=== PATIENT | male | born 1940 | race Caucasian/White ===

== ENCOUNTER 2017-05-29 13:45 | Observation (INO) | payer BC, OTHER ==
[2017-05-29 14:14] VITALS: BMI 25.0
--- NOTE | 2017-05-29 14:36 | PDOC ---
History of Present Illness - General History Source: Patient Exam Limitations: No Limitations - History of Present Illness Initial Comments: 05/29/17 15:06 The patient is a 76 year old male, with significant PMH of NE(20 years ago),HTN who presents to the emergency department with head injury s/p fall secondary to loss of consciousness 2 days ago. The patient states that he remembers having his brother pick him up from the floor in his bathroom . He also states that he was unsure if he hit his head when he fell . The patient does not have recollection of event leading up to fall. He reports that this has never happened before. The patient denies any weakness, vomiting or altermentation after fall. He states that he recently changed the time at which he takes his medication, metoprolol, to when he is going to bed. 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 Patient states that he takes aspirin 2x daily. The patient denies chest pain, shortness of breath, headache, blurred vision and dizziness. Denies fever, chills, nausea, vomit, diarrhea and constipation. Denies dysuria, frequency, urgency and hematuria. Denies neck or back pain. Denies numbness, weakness or tingling. Denies any bowel or bladder incontinence. Allergies: NKA Medications: Atorvastatin, Metoprolol, Ramipril, Valacyclovir Past surgical history: None reported Social history: Patient is employed (social work supervisor). Cardiology: Hollis Beatty <Kong Willingham - Last Filed: 05/29/17 16:10> - History of Present Illness Initial Comments: 05/29/17 16:25 Physical exam: Alert and oriented well-developed well-nourished no acute distress cheerful and cooperative Asymptomatic at present Afebrile, vital signs normal There is a healing abrasion of the right side of the forehead. There is no swelling, hematoma, depression, or purulence/drainage suggestive of infection. There is minimal tenderness. There are ecchymoses developing in the soft tissues of the lower eyelids and cheeks. No associated pain or tenderness PERRLA 4 mm, fundi benign with sharp disc margins and good central venous pulsations. ENT clear Neck without tenderness or deformity, full range of motion without pain Chest clear, full breath sounds bilaterally, no wheezes rales or rhonchi. No chest wall or rib cage tenderness or deformity CV S1 and S2 distant without murmur rub or gallop pulses full and symmetric no JVD or edema no bruits 60 and regular Abdomen soft nontender without mass or organomegaly. No CVAT Spine and pelvis without tenderness or deformity Neurological C2 to 12 intact. Strength full and symmetric. No focal sensory or motor deficits. DTRs 2+ symmetric. Babinski's down. Gait stable and unimpaired Extremities no CCE Skin clear, no rash, adequate turgor and wet mucous membranes Impression: 4 days post syncopal episode in the bathroom, asymptomatic except for abrasion of the forehead and ecchymoses below the eyes, which probably do not signify a serious illness. He has been going about his normal work since the injury. There is a history of NE but no significant cardiac symptoms since the event 40 years ago. Unlikely but possibly an acute cardiac event Plan: EKG and enzymes, head CT, routine bloods, observation and further treatment depending on results. <Luis Sullivan - Last Filed: 05/29/17 18:07> - General Chief Complaint: Injury Stated Complaint: FAINTED ON SUNDAY,HIT FORHEAD Time Seen by Provider: 05/29/17 14:06 Past History <Kong Willingham - Last Filed: 05/29/17 16:10> - Past Medical History COPD: No HTN: Yes Hypercholesterolemia: Yes - Surgical History Cardiac Surgery: Yes (ANGIOPLASTY) - Suicide/Smoking/Psychosocial Hx Smoking History: Never smoked Information on smoking cessation initiated: No Hx Alcohol Use: No Drug/Substance Use Hx: No Substance Use Type: None <Luis Sullivan - Last Filed: 05/29/17 18:07> - Past Medical History Allergies/Adverse Reactions: Allergies Allergy/AdvReac Type Severity Reaction Status Date / Time No Known Allergies Allergy Verified 05/29/17 13:55 Home Medications: Ambulatory Orders Amlodipine Besylate 5 mg PO DAILY 05/29/17 Aspirin 81 mg PO DAILY 05/29/17 Atorvastatin Ca [Lipitor] 10 mg PO HS 05/29/17 Metoprolol Succinate [Toprol Xl] 50 mg PO DAILY 05/29/17 Ramipril [Altace] 10 mg PO DAILY 05/29/17 Valacyclovir HCl [Valtrex] 500 mg PO DAILY 05/29/17 Review of Systems - Review of Systems Able to Perform ROS?: Yes Comments:: 05/29/17 15:07 CONSTITUTIONAL: Absent: fever, chills, diaphoresis, generalized weakness, malaise, loss of appetite HEENT: Absent: rhinorrhea, nasal congestion, throat pain, throat swelling, difficulty swallowing, mouth swelling, ear pain, eye pain, visual Changes CARDIOVASCULAR: Absent: chest pain, syncope, palpitations, irregular heart rate, lightheadedness , peripheral edema RESPIRATORY: Absent: cough, shortness of breath, dyspnea with exertion, orthopnea, wheezing, stridor, hemoptysis GASTROINTESTINAL: Absent: abdominal pain, abdominal distension, nausea, vomiting, diarrhea, constipation, melena, hematochezia GENITOURINARY: Absent: dysuria, frequency, urgency, hesitancy, hematuria, flank pain, genital pain MUSCULOSKELETAL: Absent: myalgia, arthralgia, joint swelling SKIN: Absent: rash, itching, pallor HEMATOLOGIC/IMMUNOLOGIC: Absent: easy bleeding, easy bruising, lymphadenopathy, frequent infections ENDOCRINE: Absent: unexplained weight gain, unexplained weight loss, heat intolerance, cold intolerance NEUROLOGIC: Present: (+) LOC Absent: headache, focal weakness or paresthesias, dizziness, unsteady gait, seizure, mental status changes, bladder or bowel incontinence PSYCHIATRIC: Absent: anxiety, depression, suicidal or homicidal ideation, hallucinations. <Kong Willingham - Last Filed: 05/29/17 16:10> *Physical Exam - Vital Signs Last Vital Signs Temp Pulse Resp BP Pulse Ox 98.5 F 59 L 16 154/70 98 05/29/17 13:47 05/29/17 13:47 05/29/17 13:47 05/29/17 13:47 05/29/17 13:47 <Kong Willingham - Last Filed: 05/29/17 16:10> - Vital Signs Last Vital Signs Temp Pulse Resp BP Pulse Ox 98.5 F 59 L 16 154/70 98 05/29/17 13:47 05/29/17 13:47 05/29/17 13:47 05/29/17 13:47 05/29/17 13:47 <Luis Sullivan - Last Filed: 05/29/17 18:07> ED Treatment Course - LABORATORY CBC & Chemistry Diagram: 05/29/17 14:59 05/29/17 14:37 - RADIOLOGY Radiograph Interpretation: 05/29/17 15:35 EXAM#: TYPE/EXAM: RESULT: [id number] CT/HEAD CT WITHOUT CONTRAST Status post head injury CT scan of the brain without intravenous contrast. There is dqzw-nq-pubyvenk volume loss and ventricular dilatation. 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 No mass lesion or intracranial hemorrhage are identified. There is no shift of the midline structures Visualized paranasal sinuses and mastoid air cells are well-aerated. The calvarium is intact. Calcification of the cavernous carotid arteries are present. IMPRESSION: Gbdd-za-hcisvsjw volume loss and ventricular dilatation. 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 Correlate clinically to determine further evaluation and follow-up. Reported By: Brandt De Leon MD <Kong Willingham - Last Filed: 05/29/17 16:10> - LABORATORY CBC & Chemistry Diagram: 05/29/17 14:59 05/29/17 14:37 <Luis Sullivan - Last Filed: 05/29/17 18:07> Medical Decision Making - Medical Decision Making 05/29/17 16:[address] Sampson (Cardiology). Case discussed with covering physician Dr. Bishop at 4:06pm <Kong Willingham - Last Filed: 05/29/17 16:10> - Medical Decision Making 05/29/17 15:02 EKG: Sinus bradycardia 56/m, mild, probably the result of beta baljit therapy. Q waves in V1 through V4, probably changes from old NE. No ST-T wave changes suggestive of acute ischemia. 05/29/17 16:20 Troponin is elevated at 0.18. CPK is normal. Attempt was made to contact the patient's stunner animal, Dr. Sampson. He is away. Spoke with Dr. Bishop, his partner. Recommended admission for serial EKGs and enzymes, but there group no longer covers Sullivan. He recommended we contact Dr. Wang's group, with whom he has an agreement to cover his patients Dr. Wang was contacted by phone. The case was discussed. He will consult. He agrees with admission and observation. No specific therapy at present. To repeat serial EKGs and enzymes to make sure cardiac status is stable. Patient is already on aspirin, of which he took his morning dose, along with all his other usual medications except metoprolol. We'll administer metoprolol now. Clinically and hemodynamically stable, no cardiac symptoms including chest pain , shortness of breath, dizziness. 05/29/17 18:06 Patient remains clinically stable. Hemodynamically stable. No symptoms. For repeat EKG and enzymes, monitoring, and observation. <Luis Sullivan - Last Filed: 05/29/17 18:07> *DC/Admit/Observation/Transfer - Attestations Scribe Attestion: 05/29/17 15:08 Documentation prepared by Kong Willingham, acting as biomedical equipment tech for Luis Valero MD <Kong Willingham - Last Filed: 05/29/17 16:10> - Discharge Dispostion Admit: Yes <Luis Sullivan - Last Filed: 05/29/17 18:07> Diagnosis at time of Disposition: Syncope Qualifiers: Syncope type: unspecified Qualified Code(s): R55 - Syncope and collapse
[2017-05-29 15:11] LABS: BASO % 0.7 % (0-2.0); EOS % 2.1 % (0-4.5); HEMATOCRIT 41.5 % (35.4-49); HEMOGLOBIN 14.2 GM/dl (11.7-16.9); MCHC 34.3 g/dl (32.0-35.9); MEAN CELL VOLUME 96.1 fl (80-96); MEAN PLT VOLUME 7.9 fl (7.5-11.1); MONO % 14.6 % (3.8-10.2); NEUT % 65.6 % (42.8-82.8); PLATELET COUNT 156 K/MM3 (134-434); RBC 4.31 M/mm3 (4.00-5.60); RDW 12.7 % (11.9-15.9); WHITE BLOOD COUNT 4.9 K/mm3 (4.0-10.8)
[2017-05-29 15:31] LABS: ALBUMIN 4.1 g/dl (3.5-5.0); ALK PHOS 65 U/L (32-92); ANION GAP 6 (8-16); BILIRUBIN,TOTAL 0.8 mg/dl (0.2-1.0); BLOOD UREA NITROGEN 20 mg/dl (7-18); CALCIUM 8.9 mg/dl (8.4-10.2); CHLORIDE 103 mmol/L (98-107); CO2 23 mmol/L (22-28); GLUCOSE,RANDOM 117 mg/dl (74-106); POTASSIUM 3.9 mmol/L (3.5-5.1); SGOT/AST 23 U/L (10-42); SGPT/ALT 24 U/L (10-40); SODIUM 132 mmol/L (136-145)
[2017-05-29] MEDS ORDERED: HEPARIN NA (PORCINE) 5,000 UNITS/ML 1ML VIAL ONE (18:46)
[2017-05-29] MEDS: HEPARIN NA (PORCINE) 5,000 UNITS/ML 1ML VIAL SQ SCH ×2 (19:03→19:15)
--- NOTE | 2017-05-29 19:23 | HP ---
CHIEF COMPLAINT: Syncope, s/p Fall PCP: Cardiology: Dr. Sampson HISTORY OF PRESENT ILLNESS: This is a 76 y/o man PMHx of [place], HTN, HLD. Who presents to the ED with a syncopal episode, s/p fall x 2 days. Patient reports while ambulating to the bathroom, he felt dizzy and passed out hitting his forehead on the bathroom sink. Patient reports having no concussive like symptoms since the event. Patent reports being on metoprolol for 30 yrs and never having any symptoms. Patient denies fever, chills, cough, DUKES, dizziness, visual disturbances. SOB, CP , palpitation, AP. N/V/D, constipation, dysuria. He reports last echo 6-8 months ago, last stress test last year. ER course was notable for: (1) Head CT- mild to moderate volume loss and ventricular dilatation. 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 (2) Trop- 0.18 (3) Carotid Doppler:No evidence of hemodynamically significant stenosis in the common carotid arteries or visualized cervical carotid arteries Recent Travel: Yes, via [employer]. [place] PAST MEDICAL HISTORY: see HPI PAST SURGICAL HISTORY: Social History: Smoking: Never Alcohol: None Drugs: None Family History: Allergies No Known Allergies Allergy (Verified 05/29/17 13:55) HOME MEDICATIONS: Home Medications Medication Instructions Recorded Amlodipine Besylate 5 mg PO DAILY 05/29/17 Aspirin 81 mg PO DAILY 05/29/17 Atorvastatin Ca [Lipitor] 10 mg PO HS 05/29/17 Metoprolol Succinate [Toprol Xl] 50 mg PO DAILY 05/29/17 Ramipril [Altace] 10 mg PO DAILY 05/29/17 Valacyclovir HCl [Valtrex] 500 mg PO DAILY 05/29/17 REVIEW OF SYSTEMS CONSTITUTIONAL: Absent: fever, chills, diaphoresis, generalized weakness, malaise, loss of appetite, weight change HEENT: Absent: rhinorrhea, nasal congestion, throat pain, throat swelling, difficulty swallowing, mouth swelling, ear pain, eye pain, visual changes CARDIOVASCULAR: syncope, lightheadedness Absent: chest pain, palpitations, irregular heart rate, peripheral edema RESPIRATORY: Absent: cough, shortness of breath, dyspnea with exertion, orthopnea, wheezing, stridor, hemoptysis GASTROINTESTINAL: Absent: abdominal pain, abdominal distension, nausea, vomiting, diarrhea, constipation, melena, hematochezia GENITOURINARY: Absent: dysuria, frequency, urgency, hesitancy, hematuria, flank pain, genital pain MUSCULOSKELETAL: Absent: myalgia, arthralgia, joint swelling, back pain, neck pain SKIN: Absent: rash, itching, pallor HEMATOLOGIC/IMMUNOLOGIC: Absent: easy bleeding, easy bruising, lymphadenopathy, frequent infections ENDOCRINE: Absent: unexplained weight gain, unexplained weight loss, heat intolerance, cold intolerance NEUROLOGIC: dizziness Absent: headache, focal weakness or paresthesias, unsteady gait, seizure, mental status changes, bladder or bowel incontinence PSYCHIATRIC: Absent: anxiety, depression, suicidal or homicidal ideation, hallucinations. PHYSICAL EXAMINATION Vital Signs - 24 hr 05/29/17 05/29/17 05/29/17 13:47 16:35 17:39 Temperature 98.5 F Pulse Rate 59 L Pulse Rate [ 66 66 Apical] Respiratory 16 21 20 Rate Blood Pressure 154/70 Blood Pressure 156/72 144/69 [Arm] O2 Sat by Pulse 98 100 99 Oximetry (%) GENERAL: Awake, alert, and fully oriented, in no acute distress. HEAD: Normal with eccyhmotic bruising and abrasions to R-temporal, bilateral orbits. EYES: Pupils equal, round and reactive to light, extraocular movements intact, sclera anicteric, conjunctiva clear. No lid lag. EARS, NOSE, THROAT: Ears normal, nares patent, oropharynx clear without exudates. Moist mucous membranes. NECK: Normal range of motion, supple without lymphadenopathy, JVD, or masses. LUNGS: Breath sounds equal, clear to auscultation bilaterally. No wheezes, and no crackles. No accessory muscle use. HEART: Regular rate and rhythm, normal S1 and S2 without murmur, rub or gallop. ABDOMEN: Soft, nontender, not distended, normoactive bowel sounds, no guarding, no rebound, no masses. No hepatomegaly or splenomegaly. MUSCULOSKELETAL: Normal range of motion at all joints. No bony deformities or tenderness. No CVA tenderness. UPPER EXTREMITIES: 2+ pulses, warm, well-perfused. No cyanosis. No clubbing. No peripheral edema. LOWER EXTREMITIES: 2+ pulses, warm, well-perfused. No calf tenderness. No peripheral edema. NEUROLOGICAL: Cranial nerves II-XII intact. Normal speech. Gait not observed. PSYCHIATRIC: Cooperative. Good eye contact. Appropriate mood and affect. SKIN: Scabbed eccyhmotic abrasion to R- temporal, Eccyhmotic bruising to bilateral orbits noted. Warm, dry, normal turgor, no rashes. normal capillary refill. Laboratory Results - last 24 hr 05/29/17 05/29/17 05/29/17 14:37 14:37 14:59 WBC 4.9 RBC 4.31 Hgb 14.2 Hct 41.5 MCV 96.1 H MCH 33.0 MCHC 34.3 RDW 12.7 Plt Count 156 MPV 7.9 Neutrophils % 65.6 Lymphocytes % 17.0 Monocytes % 14.6 H Eosinophils % 2.1 Basophils % 0.7 Sodium 132 L Potassium 3.9 Chloride 103 Carbon Dioxide 23 Anion Gap 6 L BUN 20 H Creatinine 1.0 Creat Clearance w eGFR > 60 Random Glucose 117 H Calcium 8.9 Total Bilirubin 0.8 AST 23 ALT 24 Alkaline Phosphatase 65 Creatine Kinase 95 Troponin I 0.18 H Total Protein 7.0 Albumin 4.1 Stool Occult Blood 05/29/17 05/29/17 05/29/17 18:32 18:32 18:32 WBC RBC Hgb Hct MCV MCH MCHC RDW Plt Count MPV Neutrophils % Lymphocytes % Monocytes % Eosinophils % Basophils % Sodium Potassium Chloride Carbon Dioxide Anion Gap BUN Creatinine Creat Clearance w eGFR Random Glucose Calcium Total Bilirubin AST ALT Alkaline Phosphatase Creatine Kinase 89 Troponin I < 0.03 D Total Protein Albumin Stool Occult Blood Negative RADIOLOGY Radiograph Interpretation: 05/29/17 15:35 EXAM#: TYPE/EXAM: RESULT: [id number] CT/HEAD CT WITHOUT CONTRAST Status post head injury CT scan of the brain without intravenous contrast. There is ckss-do-tfkdiivd volume loss and ventricular dilatation. 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 No mass lesion or intracranial hemorrhage are identified. There is no shift of the midline structures Visualized paranasal sinuses and mastoid air cells are well-aerated. The calvarium is intact. Calcification of the cavernous carotid arteries are present. IMPRESSION: Uncz-gb-lomhocbw volume loss and ventricular dilatation. 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 Correlate clinically to determine further evaluation and follow-up. Reported By: Brandt De Leon MD ASSESSMENT/PLAN: This is a 76 y/o man with a PMH of [place], HTN, HLD. Who presented to the ED with Syncope. Placed Tele Observation for Syncope Plan: 1. Syncope - Likely secondary to Medication vs Arrhythmia vs Malignancy - Continue cardiac monitoring - Serial Enzymes- #1 slightly elevated - Appreciate Cardiology consult - Carotid Doppler- moderate size shadowing calcified plaque, right common carotid bifurcation. No evidence of stenosis in the common carotid arteries or visualized cervical internal carotid arteries - Echo in am - Head CT- see above - Consider Neurology consult if condition worsens - Fall precautions - Repeat CBC, BMP in am 2. Hypertension - Stable - Monitor BP - Will hold BB 2/2 dizziness - Continue Valsartan, Ramipril 3. Hyperlipidemia - Continue Atorvastatin - Monitor LFTs 4. History of [place] - Continue Asa, hold BB 2/2 Syncope, defer to Cardiology 5. FEN - PO fluids as tolerated - Replete lytes prn - Low Na Diet 6. DVT ppx - OOB - SCDs Code Status: Full Code Dispo: Tele Observation Problem List - Problem (1) Syncope Code(s): R55 - SYNCOPE AND COLLAPSE Qualifiers: Syncope type: unspecified Qualified Code(s): R55 - Syncope and collapse (2) HTN (hypertension) Code(s): I10 - ESSENTIAL (PRIMARY) HYPERTENSION (3) HLD (hyperlipidemia) Code(s): E78.5 - HYPERLIPIDEMIA, UNSPECIFIED (4) DVT prophylaxis Code(s): DMO3000 - Visit type - Emergency Visit Emergency Visit: Yes ED Registration Date: 05/29/17 Care time: The patient presented to the Emergency Department on the above date and was hospitalized for further evaluation of their emergent condition. - New Patient This patient is new to me today: Yes Date on this admission: 05/29/17 - Critical Care Critical Care patient: No Hospitalist Screening - Colonoscopy Questionnaire Colonoscopy Questionnaire: Colonoscopy Questionnaire - Patient: 50 - 75 years old and never had a screening colonoscopy: No History of colon or rectal polyps, or CA: No History of IBD, Crohn's disease or UC: No History of abdominal radiation therapy as a child: No - Relative: 1 with colon or rectal CA, or polyps at age 60 or younger: No Colon or rectal CA diagnosed at age 45 or younger: No Multiple relatives with colon or rectal CA: No - Outcome: Screening Result: Negative Screen
[2017-05-30] MEDS ORDERED: ATORVASTATIN CA 10 MG TABLET (FP) PO ONE (01:40)
[2017-05-30] MEDS: HEPARIN NA (PORCINE) 5,000 UNITS/ML 1ML VIAL SQ SCH ×3 (06:29→21:15)
--- NOTE | 2017-05-30 07:41 | PN ---
Physical Exam: SUBJECTIVE: Patient seen and examined, reports feeling well, denies any chest pain or shortness of breath, patient reported dizziness that resolved after taking metoprolol. OBJECTIVE:This is a 76 y/o man PMHx of [place], HTN, HLD, patient was admitted from the emergency department to observation for syncopal episode. Vital Signs Period Temp Pulse Resp BP Sys/Lozada Pulse Ox Last 24 Hr 98.0 F-98.5 F 48-74 16-21 105-168/60-78 96-100 GENERAL: The patient is awake, alert, and fully oriented, in no acute distress. HEAD: Normal with no signs of trauma. EYES: PERRL, extraocular movements intact, sclera anicteric, conjunctiva clear. No ptosis. ENT: Ears normal, nares patent, oropharynx clear without exudates, moist mucous membranes. NECK: Trachea midline, full range of motion, supple. LUNGS: Breath sounds equal, clear to auscultation bilaterally, no wheezes, no crackles, no accessory muscle use. HEART: Regular rate and rhythm, S1, S2 without murmur, rub or gallop. ABDOMEN: Soft, nontender, nondistended, normoactive bowel sounds, no guarding, no rebound, no hepatosplenomegaly, no masses. EXTREMITIES: 2+ pulses, warm, well-perfused, no edema. NEUROLOGICAL: Cranial nerves II through XII grossly intact. Normal speech, gait not observed. PSYCH: Normal mood, normal affect. SKIN: Warm, dry, normal turgor, no rashes or lesions noted Laboratory Results - last 24 hr 05/29/17 05/29/17 05/29/17 14:37 14:37 14:59 WBC 4.9 RBC 4.31 Hgb 14.2 Hct 41.5 MCV 96.1 H MCH 33.0 MCHC 34.3 RDW 12.7 Plt Count 156 MPV 7.9 Neutrophils % 65.6 Lymphocytes % 17.0 Monocytes % 14.6 H Eosinophils % 2.1 Basophils % 0.7 Sodium 132 L Potassium 3.9 Chloride 103 Carbon Dioxide 23 Anion Gap 6 L BUN 20 H Creatinine 1.0 Creat Clearance w eGFR > 60 Random Glucose 117 H Calcium 8.9 Total Bilirubin 0.8 AST 23 ALT 24 Alkaline Phosphatase 65 Creatine Kinase 95 Troponin I 0.18 H Total Protein 7.0 Albumin 4.1 Stool Occult Blood 05/29/17 05/29/17 05/29/17 18:32 18:32 18:32 WBC RBC Hgb Hct MCV MCH MCHC RDW Plt Count MPV Neutrophils % Lymphocytes % Monocytes % Eosinophils % Basophils % Sodium Potassium Chloride Carbon Dioxide Anion Gap BUN Creatinine Creat Clearance w eGFR Random Glucose Calcium Total Bilirubin AST ALT Alkaline Phosphatase Creatine Kinase 89 Troponin I < 0.03 D Total Protein Albumin Stool Occult Blood Negative 05/29/17 05/30/17 20:50 02:29 WBC RBC Hgb Hct MCV MCH MCHC RDW Plt Count MPV Neutrophils % Lymphocytes % Monocytes % Eosinophils % Basophils % Sodium Potassium Chloride Carbon Dioxide Anion Gap BUN Creatinine Creat Clearance w eGFR Random Glucose Calcium Total Bilirubin AST ALT Alkaline Phosphatase Creatine Kinase Troponin I 0.00 0.03 Total Protein Albumin Stool Occult Blood Active Medications Generic Name Dose Route Start Last Admin Trade Name Freq PRN Reason Stop Dose Admin Aspirin 81 mg 05/30/17 10:00 Asa - PO DAILY MATT Heparin Sodium (Porcine) 5,000 unit 05/30/17 06:00 05/30/17 06:29 Heparin - SQ 5,000 unit TID MATT Administration imaging Carotid Doppler- moderate size shadowing calcified plaque, right common carotid bifurcation. 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 Syncope - likely secondary to metoprolol, patient reports similar symptoms after receiving toprol 50mg yesterday evening - remains bradycardic on telemetry, pt denies any dizziness - troponin x 3 wnl hypertension - b/p labile, hold altace and valsartan - orthostatic vital signs Hyperlipidemia - Continue Atorvastatin - Monitor LFTs CAD - continue asa, hold BB secondary to bradycardia 2 FEN - PO fluids as tolerated - Replete lytes prn - Low Na Diet 6. DVT ppx - OOB - SCDs Code Status: Full Code Dispo: Tele Observation Visit type - Emergency Visit Emergency Visit: Yes ED Registration Date: 05/29/17 Care time: The patient presented to the Emergency Department on the above date and was hospitalized for further evaluation of their emergent condition. - New Patient This patient is new to me today: Yes Date on this admission: 05/30/17 - Critical Care Critical Care patient: No - Discharge Referral Referred to [facility] Med [facility].C[facility] No
[2017-05-30 08:24] LABS: ALBUMIN 3.5 g/dl (3.5-5.0); ALK PHOS 56 U/L (32-92); ANION GAP 4 (8-16); BILIRUBIN,TOTAL 0.8 mg/dl (0.2-1.0); BLOOD UREA NITROGEN 24 mg/dl (7-18); CALCIUM 8.7 mg/dl (8.4-10.2); CHLORIDE 105 mmol/L (98-107); CO2 27 mmol/L (22-28); CREATININE 1.2 mg/dl (0.6-1.3); GLUCOSE,RANDOM 108 mg/dl (74-106); MAGNESIUM 2.1 mg/dL (1.8-2.4); PHOSPHOROUS 4.1 mg/dl (2.5-4.6); SGOT/AST 21 U/L (10-42); SGPT/ALT 20 U/L (10-40); SODIUM 136 mmol/L (136-145); TOT PROT 6.1 g/dl (6.4-8.3)
[2017-05-30 08:27] LABS: BASO % 0.5 % (0-2.0); EOS % 2.7 % (0-4.5); HEMATOCRIT 36.8 % (35.4-49); HEMOGLOBIN 12.9 GM/dl (11.7-16.9); LYMPH % 21.8 % (8-40); MCH 33.8 pg (25.7-33.7); MCHC 35.2 g/dl (32.0-35.9); MEAN CELL VOLUME 96.2 fl (80-96); MEAN PLT VOLUME 8.8 fl (7.5-11.1); MONO % 13.4 % (3.8-10.2); NEUT % 61.6 % (42.8-82.8); PLATELET COUNT 139 K/MM3 (134-434); RBC 3.83 M/mm3 (4.00-5.60); RDW 12.4 % (11.9-15.9); WHITE BLOOD COUNT 3.8 K/mm3 (4.0-10.8)
[2017-05-30] MEDS: ASPIRIN 81 MG CHEWABLE TABLETS PO SCH (09:55)
--- NOTE | 2017-05-30 12:45 | PN ---
Progress Note, Physician History of Present Illness: Dr. Sampson HISTORY OF PRESENT ILLNESS: This is a 76 y/o man PMHx of [place], HTN, HLD. Who presents to the ED with a syncopal episode, s/p fall x 2 days. Patient reports while ambulating to the bathroom, he felt dizzy and passed out hitting his forehead on the bathroom sink. Patient reports having no concussive like symptoms since the event. Patent reports being on metoprolol for 30 yrs and never having any symptoms. Patient denies fever, chills, cough, DUKES, dizziness, visual disturbances. SOB, CP , palpitation, AP. N/V/D, constipation, dysuria. He reports last echo 6-8 months ago, last stress test last year. ER course was notable for: (1) Head CT- mild to moderate volume loss and ventricular dilatation. 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 (2) Trop- 0.18 (3) Carotid Doppler:No evidence of hemodynamically significant stenosis in the common carotid arteries or visualized cervical carotid arteries Recent Travel: Yes, via [employer] PAST MEDICAL HISTORY: see HPI PAST SURGICAL HISTORY: Social History: Smoking: Never Alcohol: None Drugs: None Family History: Allergies No Known Allergies Allergy (Verified 05/29/17 13:55) - Current Medication List Current Medications: Active Medications Aspirin (Asa -) 81 mg PO DAILY [facility] Last Admin: 05/30/17 09:55 Dose: 81 mg Atorvastatin Calcium (Lipitor -) 10 mg PO HS [facility] Heparin Sodium (Porcine) (Heparin -) 5,000 unit SQ TID [facility] Last Admin: 05/30/17 06:29 Dose: 5,000 unit - Objective Vital Signs: Vital Signs Temperature 98.1 F 05/30/17 02:29 Pulse Rate 48 L 05/30/17 04:00 Respiratory Rate 20 05/30/17 04:00 Blood Pressure 105/60 05/30/17 02:29 O2 Sat by Pulse Oximetry (%) 97 05/30/17 00:38 Labs: CBC, BMP 05/30/17 07:30 05/30/17 07:30 Assessment/Plan 05/29/17 15:35 EXAM#: TYPE/EXAM: RESULT: [id number] CT/HEAD CT WITHOUT CONTRAST Status post head injury CT scan of the brain without intravenous contrast. There is cezp-jq-ufdapdyw volume loss and ventricular dilatation. 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 No mass lesion or intracranial hemorrhage are identified. There is no shift of the midline structures Visualized paranasal sinuses and mastoid air cells are well-aerated. The calvarium is intact. Calcification of the cavernous carotid arteries are present. IMPRESSION: Ppmy-fk-gouvkqic volume loss and ventricular dilatation. 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 Correlate clinically to determine further evaluation and follow-up. Reported By: Brandt De Leon MD ASSESSMENT/PLAN: This is a 76 y/o man with a PMH of [place], HTN, HLD. Who presented to the ED with Syncope. Placed Tele Observation for Syncope Plan: 1. Syncope - Likely secondary to Medication vs Arrhythmia vs Malignancy - Continue cardiac monitoring - Serial Enzymes- #1 slightly elevated - Appreciate Cardiology consult - Carotid Doppler- moderate size shadowing calcified plaque, right common carotid bifurcation. No evidence of stenosis in the common carotid arteries or visualized cervical internal carotid arteries - Echo in am - Head CT- see above - Consider Neurology consult if condition worsens - Fall precautions - Repeat CBC, BMP in am 2. Hypertension - Stable - Monitor BP - Will hold BB 2/2 dizziness - Continue Valsartan, Ramipril 3. Hyperlipidemia - Continue Atorvastatin - Monitor LFTs 4. History of [place] - Continue Asa, hold BB 2/2 Syncope, defer to Cardiology 5. FEN - PO fluids as tolerated - Replete lytes prn - Low Na Diet 6. DVT ppx - OOB - SCDs Code Status: Full Code Dispo: Tele Observation
--- NOTE | 2017-05-30 12:46 | CON.CARD ---
Consult Consult Specialty:: Cardiology Referred by:: Hospitalist Medicine Reason for Consultation:: Syncope - History of Present Illness Chief Complaint: Syncope History of Present Illness: Syncope, s/p Fall PCP: Rohini James MD Cardiology: Dr. Sampson This is a 76 y/o man PMHx of CAD s/p [place] s/p PCI LAD, RCA, HTN, HLD presented to the ED with a syncopal episode s/p mechanincal fall and closed head trauma 3 days prior. Patient reports while ambulating to the bathroom overnight, he felt dizzy, flushed and passed out hitting his forehead on the bathroom sink. Patient reports having no concussive like symptoms since the event. Patent reports being on metoprolol for 30 yrs and never having any symptoms. Patient DUKES , dizziness, visual disturbances, SOB, CP, palpitation, orthopnea, PND or LE edema. Overnight telemetry shows SB 30s with reproduction of prodromal symptoms. Recent Travel: Yes, via [place] [place] PAST MEDICAL HISTORY: see HPI PAST SURGICAL HISTORY: Social History: Smoking: Never Alcohol: None Drugs: None Family History: Allergies No Known Allergies Allergy (Verified 05/29/17 13:55) - History Source History Provided By: Patient Limitations to Obtaining History: No Limitations - Past Medical History Cardio/Vascular: Yes: CAD, HTN, Hyperlipdemia, [place] - Past Surgical History Past Surgical History: Yes: Stent - Alcohol/Substance Use Hx Alcohol Use: No - Smoking History Smoking history: Never smoked Have you smoked in the past 12 months: No Home Medications - Allergies Allergies/Adverse Reactions: Allergies Allergy/AdvReac Type Severity Reaction Status Date / Time No Known Allergies Allergy Verified 05/29/17 13:55 - Home Medications Home Medications: Ambulatory Orders Amlodipine Besylate 5 mg PO DAILY 05/29/17 Aspirin 81 mg PO DAILY 05/29/17 Atorvastatin Ca [Lipitor] 10 mg PO HS 05/29/17 Metoprolol Succinate [Toprol Xl] 50 mg PO DAILY 05/29/17 Ramipril [Altace] 10 mg PO DAILY 05/29/17 Valacyclovir HCl [Valtrex] 500 mg PO DAILY 05/29/17 Review of Systems - Review of Systems Neurological: reports: Dizziness, Syncope Vital Signs: Vital Signs Temperature 98.1 F 05/30/17 02:29 Pulse Rate 48 L 05/30/17 04:00 Respiratory Rate 20 05/30/17 04:00 Blood Pressure 105/60 05/30/17 02:29 O2 Sat by Pulse Oximetry (%) 97 05/30/17 00:38 Constitutional: Yes: No Distress, Calm, Thin Neck: Yes: Supple Respiratory: Yes: Regular, CTA Bilaterally Gastrointestinal: Yes: Normal Bowel Sounds, Soft Cardiovascular: Yes: Regular Rate and Rhythm, Other (No response with carotid sinus massage) JVD: No Carotid Bruit: No Heart Sounds: Yes: S1, S2 Edema: No - Other Data Labs, Other Data: CBC, BMP 05/30/17 07:30 05/30/17 07:30 Troponin, BNP 05/29/17 05/29/17 05/29/17 14:37 18:32 20:50 Troponin I 0.18 H < 0.03 D 0.00 05/30/17 02:29 Troponin I 0.03 Troponin, BNP 05/29/17 05/29/17 05/29/17 14:37 18:32 20:50 Troponin I 0.18 H < 0.03 D 0.00 05/30/17 02:29 Troponin I 0.03 SB @ 56 anteroseptal infarct similar to previous 08/21/16 Tele: SB 30s Ejection Fraction %: LVEF > or = 40 % Imaging - Results Cat Scan: Report Reviewed (05/29/17 15:35 EXAM#: TYPE/EXAM: RESULT: [id number] CT/HEAD CT WITHOUT CONTRAST Status post head injury CT scan of the brain without intravenous contrast. There is fxfo-mn-tpdablnn volume loss and ventricular dilatation. 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 No mass lesion or intracranial hemorrhage are identified. There is no shift of the midline structures Visualized paranasal sinuses and mastoid air cells are well- aerated. The calvarium is intact. Calcification of the cavernous carotid arteries are present. IMPRESSION: Aqqy-ux-ugxnozke volume loss and ventricular dilatation. 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 Correlate clinically to determine further evaluation and follow-up. Reported By: Brandt De Leon MD) Ultrasound: Report Reviewed (Carotid Doppler- moderate size shadowing calcified plaque, right common carotid bifurcation. No evidence of stenosis in the common carotid arteries or visualized cervical internal carotid arteries) Problem List - Problems (1) Coronary artery disease Code(s): I25.10 - ATHSCL HEART DISEASE OF [place] CORONARY ARTERY W/O ANG PCTRS Qualifiers: Coronary Disease-Associated Artery/Lesion type: [place] artery [place] vs. transplanted heart: [place] heart Associated angina: without angina Qualified Code(s): I25.10 - Atherosclerotic heart disease of [place] coronary artery without angina pectoris (2) S/P coronary artery stent placement Code(s): Z95.5 - PRESENCE OF CORONARY ANGIOPLASTY IMPLANT AND GRAFT (3) Old anterior wall myocardial infarction Code(s): I25.2 - OLD MYOCARDIAL INFARCTION (4) HLD (hyperlipidemia) Code(s): E78.5 - HYPERLIPIDEMIA, UNSPECIFIED Qualifiers: Hyperlipidemia type: pure hypercholesterolemia Qualified Code(s): E78.00 - Pure hypercholesterolemia, unspecified; E78.0 - Pure hypercholesterolemia (5) HTN (hypertension) Code(s): I10 - ESSENTIAL (PRIMARY) HYPERTENSION Qualifiers: Hypertension type: essential hypertension Qualified Code(s): I10 - Essential (primary) hypertension (6) Syncope Code(s): R55 - SYNCOPE AND COLLAPSE Qualifiers: Syncope type: vasovagal syncope Qualified Code(s): R55 - Syncope and collapse Assessment/Plan 04/12 Anteroapical infarct with minimal gwen-infarct ischemia, mild LV systolic dysfunction LVEF 44% 11/11 Echo: Mild MR, LVEF 52%, RVSP 25 mmHg 1. Syncope with bradycardia referable to medication effect and suspect underlying sick sinus syndrome 2. CAD s/p [place], PCI (stent) LAD and RCA 3. HTN/HCVD 4. Mild chronic cardiomyopathy P:1 F/u echocardiogram results 2. D/c Toprol XL and observe HR response, resume Norvasc 5 qd, decrease ramipril 2.5 qd, Lipitor 10 qd, and ASA 81 qd 3. Ambulate, patient may have ETT as outpatient to evaluate for chronotropic competence per Dr. Hollis Sampson with whom he follows-up with4. 4. Thank you for consultative opportunity
--- NOTE | 2017-05-30 13:04 | EKG ---
Test Reason : Blood Pressure : / mmHG Vent. Rate : 056 BPM Atrial Rate : 056 BPM P-R Int : 188 ms QRS Dur : 088 ms QT Int : 442 ms P-R-T Axes : 068 050 063 degrees QTc Int : 426 ms SINUS BRADYCARDIA ANTEROSEPTAL INFARCT , AGE UNDETERMINED ABNORMAL ECG NO PREVIOUS ECGS AVAILABLE Confirmed by KAROL FERNANDEZ MD ([id number]) on 05/30/2017 1:04:21 PM Referred By: ZURI KIM Confirmed By:KAROL FERNANDEZ MD
--- NOTE | 2017-05-30 13:04 | EKG ---
Test Reason : Blood Pressure : / mmHG Vent. Rate : 056 BPM Atrial Rate : 056 BPM P-R Int : 192 ms QRS Dur : 082 ms QT Int : 464 ms P-R-T Axes : 056 019 063 degrees QTc Int : 447 ms SINUS BRADYCARDIA WITH FUSION COMPLEXES LOW VOLTAGE QRS CANNOT RULE OUT ANTEROSEPTAL INFARCT (CITED ON OR BEFORE 29-MAY-2017) ABNORMAL ECG WHEN COMPARED WITH ECG OF 29-MAY-2017 14:48, FUSION COMPLEXES ARE NOW PRESENT Confirmed by REBECCA NUNEZ, KAROL ([id number]) on 05/30/2017 1:04:43 PM Referred By: DR MEJIA Confirmed By:KAROL FERNANDEZ MD
[2017-05-30] MEDS ORDERED: amLODIPine BESYLATE 5 MG TABLET (FP) PO SCH (18:30)
[2017-05-30] MEDS ORDERED: RAMIPRIL 5 MG CAPSULE (FP) PO SCH ×2 (18:30→18:45)
[2017-05-30] MEDS ORDERED: RAMIPRIL 2.5 MG CAPSULE (FP) PO SCH (18:59)
[2017-05-30] MEDS ORDERED: ATORVASTATIN CA 10 MG TABLET (FP) PO SCH (22:00)
[2017-05-30] MEDS: RAMIPRIL 2.5 MG CAPSULE (FP) PO SCH (22:08)
[2017-05-31] MEDS: HEPARIN NA (PORCINE) 5,000 UNITS/ML 1ML VIAL SQ SCH (05:34)
[2017-05-31 06:42] VITALS: BP 124/56; PULSE 54; TEMP 98.6
--- NOTE | 2017-05-31 09:22 | PN ---
Progress Note, Physician History of Present Illness: No further near or true syncope, telemetry shows SR without significant pauses. - Current Medication List Current Medications: Active Medications Amlodipine Besylate (Norvasc -) 5 mg PO DAILY [facility] Aspirin (Asa -) 81 mg PO DAILY [facility] Last Admin: 05/30/17 09:55 Dose: 81 mg Atorvastatin Calcium (Lipitor -) 10 mg PO HS [facility] Last Admin: 05/30/17 21:15 Dose: 10 mg Heparin Sodium (Porcine) (Heparin -) 5,000 unit SQ TID [facility] Last Admin: 05/31/17 05:34 Dose: 5,000 unit Ramipril (Altace -) 2.5 mg PO DAILY [facility] Last Admin: 05/30/17 22:08 Dose: 2.5 mg - Objective Vital Signs: Vital Signs Temperature 98.6 F 05/31/17 06:00 Pulse Rate 54 L 05/31/17 06:00 Respiratory Rate 18 05/31/17 06:00 Blood Pressure 124/56 05/31/17 06:00 O2 Sat by Pulse Oximetry (%) 99 05/31/17 06:00 Constitutional: Yes: No Distress, Calm, Thin Neck: Yes: Supple Cardiovascular: Yes: Regular Rate and Rhythm Respiratory: Yes: Regular, CTA Bilaterally Gastrointestinal: Yes: Normal Bowel Sounds, Soft Edema: No Labs: CBC, BMP 05/30/17 07:30 05/30/17 07:30 - ....Imaging EKG: Report Reviewed (Tele: SR without sig pauses) Problem List - Problems (1) Coronary artery disease Code(s): I25.10 - ATHSCL HEART DISEASE OF [place] CORONARY ARTERY W/O ANG PCTRS Qualifiers: Coronary Disease-Associated Artery/Lesion type: [place] artery [place] vs. transplanted heart: [place] heart Associated angina: without angina Qualified Code(s): I25.10 - Atherosclerotic heart disease of [place] coronary artery without angina pectoris (2) S/P coronary artery stent placement Code(s): Z95.5 - PRESENCE OF CORONARY ANGIOPLASTY IMPLANT AND GRAFT (3) Old anterior wall myocardial infarction Code(s): I25.2 - OLD MYOCARDIAL INFARCTION (4) HLD (hyperlipidemia) Code(s): E78.5 - HYPERLIPIDEMIA, UNSPECIFIED Qualifiers: Hyperlipidemia type: pure hypercholesterolemia Qualified Code(s): E78.00 - Pure hypercholesterolemia, unspecified; E78.0 - Pure hypercholesterolemia (5) HTN (hypertension) Code(s): I10 - ESSENTIAL (PRIMARY) HYPERTENSION Qualifiers: Hypertension type: essential hypertension Qualified Code(s): I10 - Essential (primary) hypertension (6) Syncope Code(s): R55 - SYNCOPE AND COLLAPSE Qualifiers: Syncope type: vasovagal syncope Qualified Code(s): R55 - Syncope and collapse Assessment/Plan 04/12 Anteroapical infarct with minimal gwen-infarct ischemia, mild LV systolic dysfunction LVEF 44% 11/11 Echo: Mild MR, LVEF 52%, RVSP 25 mmHg 1. Syncope with bradycardia referable to medication effect and suspect underlying sick sinus syndrome 2. CAD s/p [place], PCI (stent) LAD and RCA 3. HTN/HCVD 4. Mild chronic cardiomyopathy P: 1. Continue Norvasc 5 qd, ramipril 2.5 qd, Lipitor 10 qd, and ASA 81 qd 2. Ambulate, patient may have ETT as outpatient to evaluate for chronotropic competence per Dr. Hollis Sampson with whom he follows-up 3. May d/c from cv standpoint with f/u with Dr. Sampson.
[2017-05-31] MEDS: ASPIRIN 81 MG CHEWABLE TABLETS PO SCH (09:39)
[2017-05-31] MEDS: RAMIPRIL 2.5 MG CAPSULE (FP) PO SCH (09:39)
[2017-05-31] MEDS ORDERED: amLODIPine BESYLATE 5 MG TABLET (FP) PO SCH (10:00)
--- NOTE | 2017-05-31 10:30 | DS ---
Physical Exam: SUBJECTIVE: Patient seen and examined, reports feeling well, denies any chest pain or shortness of breath. OBJECTIVE: Patient is a 76 y/o man PMHx of [place], HTN, HLD. Who presents to the ED with a syncopal episode, s/p fall x 2 days. Patient reports while ambulating to the bathroom, he felt dizzy and passed out hitting his forehead on the bathroom sink. Patient reports having no concussive like symptoms since the event. Patent reports being on metoprolol for 30 yrs and never having any symptoms. Patient denies fever, chills, cough, DUKES, dizziness, visual disturbances. SOB, CP , palpitation, AP. N/V/D, constipation, dysuria. He reports last echo 6-8 months ago, last stress test last year. ER course was notable for: (1) Head CT- mild to moderate volume loss and ventricular dilatation. 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 (2) Trop- 0.18 (3) Carotid Doppler:No evidence of hemodynamically significant stenosis in the common carotid arteries or visualized cervical carotid arteries Vital Signs Period Temp Pulse Resp BP Sys/Lozada Pulse Ox Last 24 Hr 97.4 F-98.6 F 50-55 16-18 102-124/48-63 99-99 PHYSICAL EXAM GENERAL: The patient is awake, alert, and fully oriented, in no acute distress. HEAD: periorbital echymosis, vertical abrasion noted to the left forehead. EYES: PERRL, extraocular movements intact, sclera anicteric, conjunctiva clear. ENT: Ears normal, nares patent, oropharynx clear without exudates, moist mucous membranes. NECK: Trachea midline, full range of motion, supple. LUNGS: Breath sounds equal, clear to auscultation bilaterally, no wheezes, no crackles, no accessory muscle use. HEART: Regular rate and rhythm, S1, S2 without murmur, rub or gallop. ABDOMEN: Soft, nontender, nondistended, normoactive bowel sounds, no guarding, no rebound, no hepatosplenomegaly, no masses. EXTREMITIES: 2+ pulses, warm, well-perfused, no edema. NEUROLOGICAL: Cranial nerves II through XII grossly intact. Normal speech, gait not observed. PSYCH: Normal mood, normal affect. SKIN: Warm, dry, normal turgor, no rashes or lesions noted. LABS CBC WBC 3.8 K/mm3 (4.0-10.8) L 05/30/17 07:30 RBC 3.83 M/mm3 (4.00-5.60) L 05/30/17 07:30 Hgb 12.9 GM/dl (11.7-16.9) 05/30/17 07:30 Hct 36.8 % (35.4-49) 05/30/17 07:30 MCV 96.2 fl (80-96) H 05/30/17 07:30 MCH 33.8 pg (25.7-33.7) H 05/30/17 07:30 MCHC 35.2 g/dl (32.0-35.9) 05/30/17 07:30 RDW 12.4 % (11.9-15.9) 05/30/17 07:30 Plt Count 139 K/MM3 (134-434) 05/30/17 07:30 MPV 8.8 fl (7.5-11.1) D 05/30/17 07:30 Neutrophils % 61.6 % (42.8-82.8) 05/30/17 07:30 Lymphocytes % 21.8 % (8-40) D 05/30/17 07:30 Monocytes % 13.4 % (3.8-10.2) H 05/30/17 07:30 Eosinophils % 2.7 % (0-4.5) 05/30/17 07:30 Basophils % 0.5 % (0-2.0) 05/30/17 07:30 CMP Sodium 136 mmol/L (136-145) 05/30/17 07:30 Potassium 4.0 mmol/L (3.5-5.1) 05/30/17 07:30 Chloride 105 mmol/L (98-107) 05/30/17 07:30 Carbon Dioxide 27 mmol/L (22-28) 05/30/17 07:30 Anion Gap 4 (8-16) L 05/30/17 07:30 BUN 24 mg/dl (7-18) H 05/30/17 07:30 Creatinine 1.2 mg/dl (0.6-1.3) 05/30/17 07:30 Creat Clearance w eGFR 59.18 (>60) 05/30/17 07:30 Random Glucose 108 mg/dl (74-106) H 05/30/17 07:30 Calcium 8.7 mg/dl (8.4-10.2) 05/30/17 07:30 Phosphorus 4.1 mg/dl (2.5-4.6) 05/30/17 07:30 Magnesium 2.1 mg/dL (1.8-2.4) 05/30/17 07:30 Total Bilirubin 0.8 mg/dl (0.2-1.0) 05/30/17 07:30 AST 21 U/L (10-42) 05/30/17 07:30 ALT 20 U/L (10-40) 05/30/17 07:30 Alkaline Phosphatase 56 U/L (32-92) 05/30/17 07:30 Creatine Kinase 89 IU/L (39-308) 05/29/17 18:32 Troponin I 0.03 ng/ml (0.00-0.05) 05/30/17 02:29 Total Protein 6.1 g/dl (6.4-8.3) L 05/30/17 07:30 Albumin 3.5 g/dl (3.5-5.0) 05/30/17 07:30 imaging Carotid Doppler- moderate size shadowing calcified plaque, right common carotid bifurcation. No evidence of stenosis in the common carotid arteries or visualized cervical internal carotid arteries head ct: old frontal lobe infarct chest xray: no acute pathology HOSPITAL COURSE: Patient was admitted from the emergency department to observation for syncope , secondary to metoprolol. patient remained bradycardic on cardiac monitoring. He was asymptomatic throughout admission. troponin x 3 wnl. blood pressure remained at goal, altace was decreased to 2.5mg daily and norvasc was continued. Dr Mane, cardiology was consulted. patient has a past medical history of coronary artery disease, atoravastin was continued. PLAN - discharge home, strict follow up with private software development specialist, Dr Sampson within 1 week Date of Admission:05/29/17 Date of Discharge: 05/31/17 Minutes to complete discharge: 45 Discharge Summary Reason For Visit: SYNCOPE Current Active Problems Coronary artery disease (Acute) DVT prophylaxis (Acute) HLD (hyperlipidemia) (Acute) HTN (hypertension) (Acute) Old anterior wall myocardial infarction (Acute) S/P coronary artery stent placement (Acute) Syncope (Acute) Condition: Improved - Instructions Diet, Activity, Other Instructions: discontinue toprol, your ramipril was decreased to 2.5mg continue all medications as prescribed please follow up with the software development specialist within 1 week if any new or persistent symptoms develop please return to the emergency department Referrals: Hollis Sampson MD [Staff Physician] - 2 Weeks Disposition: HOME - Home Medications Comprehensive Discharge Medication List: Ambulatory Orders Amlodipine Besylate 5 mg PO DAILY 05/29/17 Aspirin 81 mg PO DAILY 05/29/17 Atorvastatin Ca [Lipitor] 10 mg PO HS 05/29/17 Metoprolol Succinate [Toprol Xl] 50 mg PO DAILY 05/29/17 Ramipril [Altace] 10 mg PO DAILY 05/29/17 Valacyclovir HCl [Valtrex] 500 mg PO DAILY 05/29/17 - Discharge Referral Referred to [facility] No
[2017-05-31] MEDS ORDERED: valACYclovir HCL 500 MG TABLET (FP) PO SCH (11:00)
== END 2017-05-31 12:15 | disposition home or self-care (01) ==
LOC: FER 13:45 → FM/S 19:37
PROVIDERS: ADMIT Hospitalist; ATTEND Nurse Practitioner Family
PROC: 3E033GC Introduction of Other Therapeutic Substance into Peripheral Vein, Percutaneous Approach (ICD-10-PCS; principal; 2017-05-29)
DX: R55 Syncope and collapse (principal); I10 Essential (primary) hypertension; I25.2 Old myocardial infarction; E78.5 Hyperlipidemia, unspecified; R00.1 Bradycardia, unspecified; Z79.82 Long term (current) use of aspirin; I25.10 Atherosclerotic heart disease of native coronary artery without angina pectoris; Z95.5 Presence of coronary angioplasty implant and graft; W18.39XA Other fall on same level, initial encounter; Z91.81 History of falling; Y93.89 Activity, other specified; Y92.002 Bathroom of unspecified non-institutional (private) residence as the place of occurrence of the external cause
CPT/HCPCS: 36415; 70450-TC; 71045-TC-FY; 80053; 82272; 82550; 83735; 84100; 84484; 85025; 93005; 93880-TC; 99284-25; G0378; J1644